=== PATIENT | male | born 1930 | race Caucasian/White ===

== ENCOUNTER → 2016-09-30 | Outpatient (CLI) | payer MEDICARE | LOC: PCVCCLINIC 16:00 | PROVIDERS: ATTEND Internal Medicine | DX: I71.2 Thoracic aortic aneurysm, without rupture (principal); I25.10 Atherosclerotic heart disease of native coronary artery without angina pectoris; I10 Essential (primary) hypertension; E78.5 Hyperlipidemia, unspecified; Z95.1 Presence of aortocoronary bypass graft; Z95.2 Presence of prosthetic heart valve | CPT/HCPCS: 80061; 93005; G0463 ==

== ENCOUNTER → 2017-08-15 | Outpatient (CLI) | payer MEDICARE ==
--- NOTE | 2017-08-15 10:37 | PCVCIMAG ---
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 2D Dimensions LVEF(%): 81.54 (>50%) IVSd: 10.33 (7-11mm)LVOT Diam: 22.85 (18-24mm) LVDd: 41.48 mm PWd: 7.16 (7-11mm)Ascending Ao: 28.05 (22-36mm) LVDs: 20.82 (25-40mm) Left Atrium: 31.95 (27-40mm) Aortic Root: 31.58 mm LV Single Plane 4CH: 60.33 % LV Single Plane 2CH: 65.70 %Narayan's LVEF: 63.01 % Biplane EF: 63.6 % Volumes Left Atrial Volume (Systole) Single Plane 4CH: 55.33 mLSingle Plane 2CH: 62.18 mL Biplane LA Volume: 64.00 mLLA ESV Index: 31.00 mL/m2 Aortic Valve AoV Peak Goyo.: 2.08 m/s AO Peak Gr.: 18.42 mmHgLVOT Max P.60 mmHg AO Mean Gr.: 8.02 mmHgLVOT Mean P.69 mmHg AO V2 Mean: 1.27 m/sLVOT Max V: 0.96 m/s AO V2 VTI: 39.85 cm SURESH (VTI): 2.14 [id number] V1 VTI: 20.78 cm SURESH Vmax: 1.89 cm2 Mitral Valve E/A Ratio: 1.1 MV Decel. Time: 297.57 ms MV E Max Goyo.: 0.74 m/s MV A Goyo.: 0.70 m/s MV PHT: 86.30 ms IVRT: 65.74 ms Pulmonary Valve PV Peak Goyo.: 0.99 m/sPV Peak Gr.: 3.92 mmHg Pulmonary Vein P Vein S: 0.58 m/sP Vein A: 0.36 m/s P Vein D: 0.38 m/sP Vein A Dur.: 128.0 msec P Vein S/D Ratio: 1.53 Tricuspid Valve TR Peak Goyo.: 2.66 m/s TR Peak Gr.: 28.22 mmHg TV Vmax: 0.55 m/sPA Pressure: 35.00 mmHg Left Ventricle The left ventricle is normal size. There is normal LV segmental wall motion. There is normal left ventricular wall thickness. Left ventricular systolic function is normal. The left ventricular ejection fraction is within the normal range. LVEF is 60-65%. The left ventricular diastolic function is normal. Right Ventricle The right ventricle is normal size. The right ventricular systolic function is normal. Atria The left atrium size is normal. The right atrium size is normal. 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 No aortic regurgitation is present. There is no aortic valvular stenosis. Mitral Valve The mitral valve is normal in structure. Mild mitral valve regurgitation noted. No evidence of mitral valve stenosis. Tricuspid Valve The tricuspid valve is normal in structure. Mild tricuspid regurgitation with a PA pressure of 35mmHg. Pulmonic Valve The pulmonary valve is normal in structure. There is no pulmonic valvular regurgitation. Great Vessels The aortic root is normal in size. IVC is normal in size and collapses with >50% inspiration Pericardium There is no pericardial effusion. <Conclusion> Left ventricular systolic function is normal. There is normal LV segmental wall motion. LVEF is 60-65%. Normally functioning #22 Mosaic bioprosthetic in the aortic position (Peak gradient 18mm, mean 8mmHg); no insufficiency The mitral valve is normal in structure. Mild mitral valve regurgitation noted. Pulmonary artery pressure of 35mmHg There is no pericardial effusion.
== END | disposition home or self-care (01) ==
LOC: PCVCIMAG 09:23
PROVIDERS: ATTEND Internal Medicine
DX: I08.3 Combined rheumatic disorders of mitral, aortic and tricuspid valves (principal); I25.10 Atherosclerotic heart disease of native coronary artery without angina pectoris; I71.2 Thoracic aortic aneurysm, without rupture; E78.5 Hyperlipidemia, unspecified; I10 Essential (primary) hypertension; Z95.1 Presence of aortocoronary bypass graft; Z95.4 Presence of other heart-valve replacement
CPT/HCPCS: 80061; 93005; 93306; G0463